=== PATIENT | male | born 1970 | race Two or more races ===

== ENCOUNTER 2021-02-04 13:06 | Emergency (ER) | payer OTHER ==
[~2021-02-04] VITALS: Ht 185.4 cm; Wt 77.1 kg
[2021-02-04 13:28] VITALS: BP 134/81
[2021-02-04] MEDS ORDERED: HYDR-3976 GT (13:31)
[2021-02-04] MEDS ORDERED: IBUP-1955 PO (13:31)
[2021-02-04] MEDS ORDERED: CETI1TAB9 PO (13:31)
[2021-02-04] MEDS ORDERED: AMOX250C PO (13:32)
--- NOTE | 2021-02-04 13:39 | NUR ---
Patient discharged to home in stable condition. Written and verbal after care instructions given. Patient verbalizes understanding of instruction.
== END 2021-02-04 13:39 | disposition home or self-care (01) ==
LOC: ER 13:10
DX: J32.0 Chronic maxillary sinusitis (principal); Z79.899 Other long term (current) drug therapy